=== PATIENT | female | born 1950 | race Caucasian/White ===

== ENCOUNTER → 2017-03-18 | Outpatient (CLI) | payer MEDICARE ==
--- NOTE | 2017-03-18 11:50 | MR ---
EXAMINATION TYPE: MR shoulder LT wo con DATE OF EXAM: 03/18/2017 COMPARISON: NONE. Outside radiographs submitted are of the right shoulder. HISTORY: Left shoulder pain TECHNIQUE: Multiplanar, multisequence imaging of the left shoulder is performed without contrast. FINDINGS: Rotator Cuff: There is a complete tear of the supraspinatus with approximately 3.4 cm of retraction o f the myotendinous junction and resultant mild muscular atrophy. The visualized tendons undulating an d some low signal representing evolving hemorrhage and debris is seen replacing the tendon. There is a high-grade partial-thickness articular surface tear of the infraspinatus involving the dis osvaldo fibers with some insertional fibers remaining. This measures approximately 1.1 x 2.3 cm. This is superimposed upon severe tendinosis is increased PD signal seen throughout the myotendinous junction and distal fibers of the infraspinatus. Teres minor is unremarkable and signal and muscle volume. There is a partial thickness tear of the insertional fibers of the subscapularis involving the tendon fibers that cross the bicipital groove, however there is no dislocation or subluxation of the biceps tendon. This is superimposed upon subscapularis moderate tendinosis. Acromioclavicular Joint: Moderate acromioclavicular arthropathy is seen as capsular hypertrophy, subc hondral cyst and marginal osteophytes. Glenohumeral Joint: Small enthesophytes are seen of the greater tuberosity as well as subchondral cys ts from enthesophytes. Labrum: There is global degeneration of the labrum most pronounced in the superior anterior and super ior posterior labrum. Biceps Tendon: The long head of biceps is in normal location within bicipital groove. There is a spli t tear of the intra-articular portion of the biceps tendon thickening to the biceps anchor Bone marrow signal: No focal abnormal marrow signal is appreciated. Other: There is a small joint effusion with internal decreased PD signal indicative of superimposed s ynovitis. Fluid extends into the subdeltoid/subacromial as well as the subcoracoid bursa IMPRESSION: 1. Complete tear tear with retraction and muscular atrophy of the supraspinatus with approximately 3. 4 cm of retraction. Evolving hemorrhage and debris replaces the tendon. 2. High-grade partial-thickness tear of the articular surface of the infraspinatus involving the dist al fibers and some insertional fibers this measures 1.1 x 2.3 cm and is superimposed upon severe tend inosis. 3. Partial thickness tear of the insertional fibers of the subscapularis across the bicipital groove with no dislocation of the biceps tendon. 4. Split tear of the intra-articular portion of the biceps tendon. 5. Moderate acromio clavicular arthropathy. 6. Small joint effusion with associated synovitis. 7. Labral degeneration most pronounced in the superior labrum. 8. Mild glenohumeral arthropathy.
== END | disposition home or self-care (01) ==
LOC: RADMRIMAIN 10:48
PROVIDERS: ATTEND Orthopaedic Surgery
DX: M75.112 Incomplete rotator cuff tear or rupture of left shoulder, not specified as traumatic (principal); M62.512 Muscle wasting and atrophy, not elsewhere classified, left shoulder; M12.9 Arthropathy, unspecified

== ENCOUNTER 2017-05-08 05:45 | Day surgery (SDC) | payer MEDICARE ==
[2017-05-03 11:11] VITALS: BMI 54.1
--- NOTE | 2017-05-07 13:55 | HP ---
HISTORY AND PHYSICAL DATE OF SERVICE: 05/08/2017 Pilar Wells is a 67-year-old patient seen with progressive left shoulder pain. After having treatment options discussed, she elected to proceed with left shoulder arthroscopy. Consent regarding the procedure was obtained. Medical clearance was provided by Dr. Almeida; cardiac clearance by Dr. Schultz. PAST MEDICAL HISTORY: Hypertension, hyperlipidemia, gastroesophageal reflux disease, cardiovascular disease. PAST SURGICAL HISTORY: Reverse shoulder arthroplasty, cardiac catheterization with stent insertion, mastectomy, left knee arthroscopy, left total knee arthroplasty. DAILY MEDICATIONS: 1. Atenolol. 2. Citalopram. 3. Lipitor. 4. [place]. 5. Omeprazole. 6. Plavix. 7. Quinapril. ALLERGIES: None. SOCIAL HISTORY: Patient denies current tobacco use. PHYSICAL EVALUATION OF LEFT SHOULDER: Flexion is 90 degrees, abduction is 90 degrees, external rotation is 0 degrees with pain and weakness, tenderness along the anterior lateral rotator cuff and acromion impingement sign positive 80 degrees. Drop-arm sign is positive. Distal neurovascular exam intact. RADIOGRAPHS OF LEFT SHOULDER: Type 2 anterior acromion, evidence for acromioclavicular joint osteoarthritis. Left shoulder MRI, retracted rotator cuff tear and acromioclavicular joint osteoarthritis. IMPRESSION: 1. Left shoulder impingement with rotator cuff tear. 2. Hypertension. 3. Hyperlipidemia. PLAN: Left shoulder arthroscopy with subacromial decompression, possible arthroscopic rotator cuff repair, possible Florentino procedure and debridement. MMODL / IJN: [id number] /
[2017-05-08] MEDS ORDERED: HYDROmorphone 0.5 MG/0.5 ML SYRINGE IVP PRN (05:52)
[2017-05-08] MEDS ORDERED: ONDANSETRON 4 MG/2 ML VIAL IVP ONE (05:52)
[2017-05-08] MEDS ORDERED: LACTATED RINGERS 1,000 ML IV SCH (05:52)
[2017-05-08] MEDS ORDERED: DEXAMETHASONE SOD PHOSPHATE 10 MG/ML 1 ML VIAL IV ONE (05:52)
[2017-05-08] MEDS ORDERED: MIDAZOLAM 2 MG/2 ML VIAL IV PRN (05:52)
[2017-05-08] MEDS ORDERED: MORPHINE SULFATE 4 MG/ML SYRINGE IVP PRN (06:16)
[2017-05-08] MEDS ORDERED: LIDOCAINE 1% 20 ML VIAL (10MG/ML) FOR IV START INTRADERMA ONE (06:43)
[2017-05-08] MEDS ORDERED: MIDAZOLAM 2 MG/2 ML VIAL ONE (07:26)
[2017-05-08] MEDS ORDERED: SUCCINYLCHOLINE CHLORIDE VIAL 200 MG/10 ML VIAL IV ONE (07:26)
[2017-05-08] MEDS ORDERED: LIDOCAINE 1% INJ 10MG/ML (20 ML MDV) ONE (07:26)
[2017-05-08] MEDS ORDERED: ePHEDrine SULFATE/0.9% NACL/PF 50 MG/5 ML SYRINGE IV ONE (07:26)
[2017-05-08] MEDS ORDERED: ROPIVACAINE 5 MG/ML 30 ML VIAL ONE (07:26)
[2017-05-08] MEDS ORDERED: PROPOFOL 10 MG/ML 20 ML VIAL IV ONE (07:26)
[2017-05-08] MEDS ORDERED: LIDOCAINE 2%-EPI 1:100,000 20 ML VIAL ONE (07:26)
--- NOTE | 2017-05-08 08:24 | P.ONQ ---
Anesthesiology Proc Note - PNB - Peripheral Nerve Block Performed Left Interscalene Single Time Out Performed: Yes (07:05) Procedure Start Time: 07:06 Procedure Stop Time: :19 Indication: Acute Post-Operative Pain, Requested by physician Sedation Type: Sedate with meaningful contact maintained Preparation: Sterile Prep Position: Supine Catheter: None Needle Types: Facet Needle Size: 50mm (2") Needle Gauge: 20 Technique: Ultrasound Injectate: 2.0% Lidocaine (see comment for volume) (15mls Ropivacaine 0.5% + 15 mls Lidocaine 2% with Epi) Adjunct: Epinephrine (see comment for dilution ratio) Blood Aspirated: No Pain Paresthesia on Injection Noted: No Resistance on Injection: Normal Events: Uneventful and Well Tolerated
[2017-05-08 10:22] VITALS: TEMP 97.4
--- NOTE | 2017-05-08 10:24 | P.OP ---
Date of Procedure: 05/08/17 Preoperative Diagnosis: Left shoulder impingement with rotator cuff tear Postoperative Diagnosis: 1. Left shoulder rotator cuff tear 2. Left shoulder impingement 3. Left shoulder partial long head biceps tendon tear 4. Left shoulder anterior/superior labral tears 5. 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 Left shoulder grade 2 chondromalacia glenoid Procedure(s) Performed: 1. Left shoulder arthroscopic rotator cuff repair 2. Left shoulder arthroscopic subacromial decompression 3. Left shoulder arthroscopic biceps tenotomy 4. Left shoulder arthroscopic debridement labral tear 5. Left shoulder arthroscopic chondroplasty humeral head 6. Left shoulder arthroscopic chondroplasty glenoid Implants: 4-peek anchors Anesthesia: GETA, regional (Interscalene block) Surgeon: Stewart Hernandez Certified Home Health Aide #1: Kaveh Cooley Estimated Blood Loss (ml): 15 Pathology: none sent Condition: stable Disposition: PACU Indications for Procedure: 67-year-old patient seen with progressive left shoulder pain. After treatment options were discussed, she elected to proceed with arthroscopy. Operative Findings: See description of procedure Description of Procedure: Patient underwent a shoulder block by department of anesthesia. The patient was then taken to the operative suite. The patient underwent a general anesthetic by the department of anesthesia. The patient was placed into a lateral position and secured. There was appropriate padding of the bony prominence. Left shoulder was then prepped and draped in normal sterile orthopedic fashion. We placed the extremity in 10 pounds of longitudinal traction. A posterior incision was now made for a posterior working portal site. The trocar and cannula were inserted into the glenohumeral joint. Arthroscopy was initiated. Spinal needle was now inserted anteriorly, to ascertain the anterior working portal site. An incision was now made in that area, a trocar was inserted followed by a probe. There was superficial tearing of the anterior and superior labrum present. Partial tearing long head biceps tendon with hyperemia. An obvious large rotator cuff tear visualized from glenohumeral side. Grade 2 chondromalacia of the superior portion of the glenoid with some osteochondral tears present. Grade 2/3 chondroplasty superior portion humeral head with some osteochondral tears present. No loose bodies. I performed an arthroscopic biceps tenotomy. I debrided those labral tears down to stable tissue. I performed a chondroplasty of both the humeral head and glenoid getting down to stable osteochondral tissue. The residual labrum was stable. The residual osteochondral tissue appears stable. At this point instruments were removed from glenohumeral joint. Utilizing the posterior working portal site, the trocar and cannula were inserted into the subacromial space. Arthroscopy initiated. I made an incision 2 fingerbreadths lateral to the acromion. I introduced my trocar followed by my [employer] ablator. I now began ablating thick subacromial bursal tissue, which exposed the undersurface of the anterior acromion. This was diminished subacromial space. There was a very prominent anterior acromion. A motorized bur was introduced and a subacromial decompression was performed. I also excised some osteophytes off the inferior aspect of the distal clavicle. The AC joint was visualized and noted to be moderately arthritic. I did not think enough toward a Florentino procedure. I turned my attention to the rotator cuff tear. There was massive and retracted rotator cuff tear. A soft tissue grasper was utilized to try to pull the tendon over the footprint which I was not able to do. I now began meticulously releasing the tendon until was able to finally just get it over the footprint. There was some tension but I felt that this could be repaired. I now abraded the footprint with a motorized bur. I now passed 6 everted mattress sutures through good bites of rotator cuff tendon. I now introduced 3 anchors pulling the tendon over the footprint and compressing it nicely. All suture limbs were clipped. The residual repair appeared stable. I injected 1 mL of UCT intra-articular. Instruments now removed from the portal sites. All portal sites were approximated with nylon suture. Sterile dressings were applied followed by a shoulder immobilizer. Naif MOSS assisted with the procedure. The patient was awakened, transferred to a bed, and taken to recovery in stable condition.
[2017-05-08 11:00] VITALS: RESP 16
[2017-05-08] MEDS ORDERED: LACTATED RINGERS 1,000 ML IV ONE (11:04)
[2017-05-08 12:35] VITALS: BP 155/90; PULSE 68
== END 2017-05-08 12:41 | disposition home or self-care (01) ==
LOC: OR 05:45
PROVIDERS: ATTEND Orthopaedic Surgery
DX: M75.102 Unspecified rotator cuff tear or rupture of left shoulder, not specified as traumatic (principal); M25.812 Other specified joint disorders, left shoulder; S46.112A Strain of muscle, fascia and tendon of long head of biceps, left arm, initial encounter; X58.XXXA Exposure to other specified factors, initial encounter; M25.712 Osteophyte, left shoulder; M94.212 Chondromalacia, left shoulder; I25.10 Atherosclerotic heart disease of native coronary artery without angina pectoris; I10 Essential (primary) hypertension; I25.2 Old myocardial infarction; E78.5 Hyperlipidemia, unspecified; D64.9 Anemia, unspecified; K21.9 Gastro-esophageal reflux disease without esophagitis; Z79.82 Long term (current) use of aspirin; Z79.02 Long term (current) use of antithrombotics/antiplatelets; Z79.891 Long term (current) use of opiate analgesic; Z79.899 Other long term (current) drug therapy
CPT/HCPCS: 64415; 29826; 29827; C1713 ×3; C1765; J2250; J0330; J1100; J0690; J2405; J2001; J2795; J2704

== ENCOUNTER → 2023-04-01 | Outpatient (CLI) | payer MEDICARE ==
[2023-04-01 14:09] LABS: Appearance,Urine Cloudy (Clear); Bacteria,Urine Rare /hpf; Bilirubin,Urine Negative (Negative); Blood,Urine Negative (Negative); Color,Urine Yellow; Glucose,Urine (UA) Negative (Negative); Hyaline Casts,Urine 1 /lpf (0-2); Ketones,Urine Negative (Negative); Leukocyte Esterase,Urine Negative (Negative); Mucus,Urine Rare /hpf; Nitrite,Urine Negative (Negative); PH, Urine 5.5 (5.0-8.0); Protein,Urine 1+ (Negative); RBC,Urine 1 /hpf (0-5); Specific Gravity,Urine 1.038 (1.001-1.035); Squamous Epithelial Cell,Urine 7 /hpf (0-4); WBC,Urine <1 /hpf (0-5)
[2023-04-01 19:37] LABS: Basophils # (A) 0.03 X 10*3/uL (0.00-0.10); Basophils % (A) 0.5 %; Eosinophils # (A) 0.23 X 10*3/uL (0.04-0.35); Eosinophils % (A) 3.6 %; HCT 37.8 % (37.2-46.3); HGB 11.9 g/dL (12.0-15.0); Lymphocytes # (A) 1.54 X 10*3/uL (0.90-5.00); Lymphocytes % (A) 24.4 %; MCH 30.5 pg (27.0-32.0); MCHC 31.5 g/dL (32.0-37.0); MCV 96.9 FL (80.0-97.0); Mean Platelet Volume 10.9 FL (9.5-12.2); Monocytes # (A) 0.44 X 10*3/uL (0.20-1.00); NRBC Per 100 WBC 0 X 10*3/uL (0.00-0.01); Neutrophils # (A) 4.05 X 10*3/uL (1.80-7.70); Neutrophils % (A) 64.2 %; Platelet Count 202 X 10*3/uL (140-440); RDW 13.5 % (11.5-14.5); WBC 6.31 X 10*3/uL (4.50-10.00)
[2023-04-01 20:57] LABS: Prealbumin 16.8 mg/dL (18.0-42.0)
[2023-04-01 22:46] LABS: ALT 17 U/L (8-44); AST 21 U/L (13-35); Albumin/Globulin Ratio 1.82 Ratio (1.60-3.17); Alkaline Phosphatase 99 U/L (41-126); BUN/Creat Ratio 20.62 Ratio (12.00-20.00); Blood Urea Nitrogen 16.5 mg/dL (9.0-27.0); Calcium 9.5 mg/dL (8.7-10.3); Carbon Dioxide 25.2 mmol/L (21.6-31.8); Chloride 103 mmol/L (96-109); Globulin 2.2 g/dL (1.6-3.3); Glucose 73 mg/dL (70-110); Potassium 4.2 mmol/L (3.5-5.5); Sodium 141 mmol/L (135-145); Total Bilirubin 0.3 mg/dL (0.3-1.2); Total Protein 6.2 g/dL (6.2-8.2)
== END | disposition home or self-care (01) ==
LOC: LABWHC1 12:22
PROVIDERS: ATTEND Orthopaedic Surgery Adult Reconstructive Orthopaedic Surgery
DX: Z01.812 Encounter for preprocedural laboratory examination (principal); M16.12 Unilateral primary osteoarthritis, left hip; R79.9 Abnormal finding of blood chemistry, unspecified
CPT/HCPCS: 36415; 80053; 81001; 82306; 84134; 85025; 87070

== ENCOUNTER → 2023-05-21 | Outpatient (CLI) | payer MEDICARE | END | disposition home or self-care (01) | LOC: RADXRMAIN 16:29 | PROVIDERS: ATTEND Family Medicine | DX: Z53.9 Procedure and treatment not carried out, unspecified reason (principal) ==